=== PATIENT | male | born 1955 | race Hispanic/Latino ===

== ENCOUNTER 2017-12-17 15:04 | Emergency (ER) | payer MEDICARE | END 2017-12-17 18:21 | disposition home or self-care (01) | LOC: ERS 15:04 | DX: M54.2 Cervicalgia (principal); G89.29 Other chronic pain; E11.9 Type 2 diabetes mellitus without complications; Z79.4 Long term (current) use of insulin; Z79.891 Long term (current) use of opiate analgesic; Z79.899 Other long term (current) drug therapy | CPT/HCPCS: 99283 ==

== ENCOUNTER 2020-02-28 11:08 | Inpatient (IN) | payer MEDICARE, OTHER ==
--- NOTE | 2020-02-28 11:25 | CT ---
CT Brain WO Con: 02/28/2020 12:00 AM CLINICAL HISTORY: 64-year-old male with left-sided weakness, headache and left leg numbness. IMAGING TECHNIQUE: Multiple CT images were obtained of the brain without IV contrast. COMPARISON: CT of the brain dated January 23, 2009 FINDINGS: BRAIN: Evidence of infarct: There is a 1.9 x 1.6 cm right thalamic hemorrhagic infarct with mild surroundin g vasogenic edema. There is a remote lacunar infarct involving the left basal ganglia, specifically the left caudate head and left globus pallidus that has occurred in the interim. Evidence of cranial hemorrhage: None. Evidence of midline shift: Third ventricle and septum pellucidum are midline. Ventricles: Normal. No hydrocephalus. SKULL: Intact. VISUALIZED PARANASAL SINUSES: There is mild mucosal thickening within the ethmoid air cells and left maxillary sinus. MASTOID AIR CELLS: Clear. EXTRACRANIAL SOFT TISSUES: Normal. IMPRESSION: 1. Acute right thalamic hemorrhagic infarct with mild surrounding vasogenic edema. 2. Chronic lacunar infarct involving the left basal ganglia. 3. Mild paranasal sinus disease. 4. Findings called to Dr. Silver at 11:20 AM on February 26, 2020.
[2020-02-28] MEDS ORDERED: Labetalol HCl 100 MG/20 ML VIAL ONE (11:31)
[2020-02-28] MEDS ORDERED: Acetaminophen 500 MG TAB ONE (11:41)
[2020-02-28] MEDS ORDERED: diphenhydrAMINE 50 MG/ML VIAL ONE (11:41)
[2020-02-28] MEDS ORDERED: Metoclopramide HCl 10 MG/2 ML VIAL ONE (11:41)
[2020-02-28 11:56] LABS: #Lymphocytes 0.7 thou/uL (1.20-3.40); #Monocytes 0.5 thou/uL (0.11-0.59); %Basophils 0.3 % (0.0-1.0); %Eosinophils 0.3 % (0.0-10.0); %Lymphocytes 7.1 % (21.0-51.0); %Monocytes 5.7 % (0.0-10.0); %Neutrophils 86.7 % (42.0-75.0); Hemoglobin 15.9 g/dL (14.0-18.0); Mean Corpuscular HGB CONC 35.3 g/dL (32.0-36.0); Mean Corpuscular Volume 90.7 fL (78.0-98.0); Mean Platelet Volume 8.2 fL (7.4-10.4); Platelet Count 242 thou/uL (130-400); RBC Distribution Width 11.9 % (11.5-14.5); Red Blood Cell (RBC) Count 4.98 mill/uL (4.70-6.10); White Blood Cell (WBC) Count 9.2 thou/uL (4.8-10.8)
--- NOTE | 2020-02-28 11:59 | RAD ---
EXAM: Single view of the chest HISTORY: Altered mental status COMPARISON: 12/12/2015 FINDINGS: Single view of the chest shows a normal sized cardiomediastinal silhouette. There is no luis armando dence of consolidation, mass, or pleural effusion. Patient has a right shoulder prosthesis. IMPRESSION: No evidence of acute cardiopulmonary disease
[2020-02-28 12:15] LABS: ALT (SGPT) 23 U/L (8-55); AST (SGOT) 47 U/L (5-34); Alkaline Phosphatase 83 U/L (40-110); Anion Gap 20 mmol/L (10-20); BUN (Urea Nitrogen) 15 mg/dL (8.4-25.7); CK (CPK) 2633 U/L (30-200); Calc. Creatinine Clearance 0 mL/min (70-130); Calcium 9.2 mg/dL (7.8-10.44); Carbon Dioxide 19 mmol/L (23-31); Chloride 100 mmol/L (98-107); Estimated GFR-MDRD 57; Globulin 2.7 g/dL (2.4-3.5); Glucose 333 mg/dL (80-115); Potassium 4.5 mmol/L (3.5-5.1); Protein, Total 6.7 g/dL (5.8-8.1); Sodium 134 mmol/L (136-145)
[2020-02-28 12:24] LABS: INR-International Normal Ratio 1.2; Prothrombin Time 14.7 sec (12.0-14.7)
[2020-02-28 12:25] LABS: PTT 35.6 sec (22.9-36.1)
[2020-02-28] MEDS ORDERED: Labetalol HCl 100 MG/20 ML VIAL SLOW IVP PRN (16:15)
--- NOTE | 2020-02-28 16:15 | PDOC.HHP ---
Hospitalist HPI - History of Present Illness L side weakness due to hemorrhagic stroke History of Present Illness: This is a 64 year old male with a past medical history of Type II Diabetes, hypertension, who presented after a fall. The patient states that last night he was sitting on the toilet and when he got up he fell. He noticed some left arm numbness and leg numbness at around 11:00 pm last night. He states he was unable to get up off the floor. He did hit his head but did not lose consciousness. He reports mild headache, no changes in vision, no chest pain, palpitations, dizziness or lightheadedness prior to the fall. He did not notice any changes in his speech. The patient reports having right sided shoulder pain after his fall. He reports some pain lifting up his right shoulder ED Course: The patient presented to the ER with slightly elevated BP in the 160's. He was noted to have left sided weakness so Ct head was done which showed acute right thalamic hemorrhagic infarct with vasogenic edema. Neurosurgery was contacted who recommended keeping BP < 150. The patient was given 30 mg IV labetalol, tylenol, benadryl and reglan for his headache. The patient's labs showed CK of 2633, AST 47 Hospitalist ROS - Review of Systems Constitutional: reports: weakness (Left side). denies: fever, chills, sweats Eyes: reports: other (Left side ptosis) ENT: denies: ear discharge Respiratory: denies: shortness of breath, sputum Gastrointestinal: denies: nausea, vomiting, diarrhea Musculoskeletal: reports: shoulder pain (Right side) Hospitalist History - Past Medical History Gastrointestinal: reports: GERD Endocrine: reports: Diabetes - Past Surgical History Past Surgical History: reports: Appendectomy, Other (Lymph node removal, thigh) - Family History Family History: reports: no pertinent history - Social History Smoking Status: Never smoker Alcohol: reports: Occassional Drugs: reports: none - Exam General Appearance: awake alert Eye: PERRL, anicteric sclera ENT: normocephalic atraumatic Neck: supple, symmetric, no lymphadenopathy Heart: RRR, no murmur, no gallops, no rubs, normal peripheral pulses Respiratory: CTAB, rhonchi Gastrointestinal: soft, normal bowel sounds, tender to palpation Extremities: no cyanosis, no clubbing Skin: normal turgor Neurological: cranial nerve grossly intact Neurological - other findings: 1+ reflexes biceps/brachioradialis, 1+ patella. Neg Babinski bilaterally Musculoskeletal: normal strength, generalized weakness (Cannot lift left arm but can move left leg and right leg. Diminished strength left arm and leg. Pain with lifting right arm above 180 degrees) Psychiatric: A&O x 3 Hospitalist Results - Labs Result Diagrams: 02/28/20 11:11 02/28/20 11:11 Lab results: WBC 9.2 thou/uL (4.8-10.8) 02/28/20 11:11 Hgb 15.9 g/dL (14.0-18.0) 02/28/20 11:11 Hct 45.1 % (42.0-52.0) 02/28/20 11:11 MCV 90.7 fL (78.0-98.0) 02/28/20 11:11 Plt Count 242 thou/uL (130-400) 02/28/20 11:11 Neutrophils % 86.7 % (42.0-75.0) H 02/28/20 11:11 Sodium 134 mmol/L (136-145) L 02/28/20 11:11 Potassium 4.5 mmol/L (3.5-5.1) 02/28/20 11:11 Chloride 100 mmol/L (98-107) 02/28/20 11:11 Carbon Dioxide 19 mmol/L (23-31) L 02/28/20 11:11 BUN 15 mg/dL (8.4-25.7) 02/28/20 11:11 Creatinine 1.26 mg/dL (0.7-1.3) 02/28/20 11:11 Glucose 333 mg/dL (80-115) H 02/28/20 11:11 Calcium 9.2 mg/dL (7.8-10.44) 02/28/20 11:11 Total Bilirubin 1.0 mg/dL (0.2-1.2) 02/28/20 11:11 AST 47 U/L (5-34) H 02/28/20 11:11 ALT 23 U/L (8-55) 02/28/20 11:11 Alkaline Phosphatase 83 U/L (40-110) 02/28/20 11:11 Creatine Kinase 2633 U/L (30-200) H 02/28/20 11:11 Troponin I Less than 0.010 ng/mL (< 0.028) 02/28/20 11:11 Serum Total Protein 6.7 g/dL (5.8-8.1) 02/28/20 11:11 Albumin 4.0 g/dL (3.4-4.8) 02/28/20 11:11 - EKG Interpretation EKG: normal snius rhythm Hospitalist H&P A/P - Plan Plan: CT brain: acute right thalamic hemorrhagic infarct with mild surrounding vasogenic edema. Mild paranasal sinus disease This is a 64 year old male with past medical history of diabetes, hypertension who presented with left sided weakness and a fall, found to have hemorrhagic infarct Acute hemorrhagic infarct - the patient has left sided weakness. MRI brain has been ordered -neurosurgery has been consulted, keep BP < 160. will hold aspirin for now, continue statin Type II diabetes - continue insulin sliding scale - fingersticks achs Right shoulder pain - right shoulder X ray unremarkable DVT prophylaxis: hold for now, SCDS Code status: full code
[2020-02-28 16:35] VITALS: BMI 26.9
--- NOTE | 2020-02-28 18:36 | RAD ---
RIGHT SHOULDER THREE VIEWS: History: Shoulder pain after a fall. FINDINGS: A total shoulder replacement is in place. On the transcapular view, the articulation between the nahomy ral and glenoid components appears normal. No fractures are seen. IMPRESSION: No acute changes. POS: [facility]
[2020-02-28] MEDS: Acetaminophen 325 MG TAB PO PRN (19:00)
[2020-02-28] MEDS ORDERED: Dextrose 50% Abboject 50 ML SYRINGE SLOW IVP PRN (19:22)
[2020-02-28] MEDS ORDERED: Dextrose 5% in Water 1,000 ML IV PRN (19:22)
--- NOTE | 2020-02-28 19:28 | CT ---
CT BRAIN WITHOUT CONTRAST: History: Intracranial hemorrhage. FINDINGS: No significant interval change is seen since the earlier exam of 11:16 a.m. from the same date. IMPRESSION: Stable exam. POS: ANDRE
[2020-02-28] MEDS: Atorvastatin Calcium 40 MG TAB PO SCH (21:39)
[2020-02-28] MEDS: HumaLOG 300 UNITS/3 ML VIAL SC PRN (22:04)
[2020-02-29] MEDS: hydrALAZINE 20 MG/ML VIAL SLOW IVP PRN (00:16)
[2020-02-29] MEDS: Acetaminophen 325 MG TAB PO PRN ×2 (01:02→07:52)
--- NOTE | 2020-02-29 06:12 | PRG ---
DATE OF SERVICE: 02/28/2020 TIME OF ENCOUNTER: 1650. HISTORY: Mr. Campbell is a 64-year-old male who reports that last night he started to feel some chest discomfort and this morning noticed some left-sided arm and lower extremity weakness with mild speech slurring. This brought him to the emergency department where a CT scan was performed revealing a 0.5 to 1.5 cm right-sided deep thalamic hemorrhage, certainly the cause of his sudden onset of symptoms. He was hypertensive upon arrival with systolic pressures in the high 170s to 180s upon arrival. He does have known history of hypertension and takes medications for this. He is also a diabetic. He does not take any blood thinners according to his history or chart. He was admitted to the hospitalist service for observation. Upon my review with him this afternoon at bedside, he has regained some strength in the left upper and lower extremity, although is obviously weaker than the right. I grade his strength of 4-/5 in both the left upper and left lower extremity movements and all gross major joint movements. Right upper, right lower extremity, 5/5. Speech is fluid and uninhibited. He is A and O x4 and understands where he is and the events of last night and this morning fully. Breathing is unlabored. Systolic pressures in the 140s which is excellent. We would recommend repeat CT scan this evening at around 6 o'clock p.m. We will put the order in for this. If this is stable, no need for further imaging until outpatient followup in 6 to 8 weeks. Hold all blood thinning medications. He will likely need physical therapy and occupational therapy and disposition planning with Case Management to ensure that he is safe to go home or perhaps a swing bed until ready to go home pending review from the therapist input. Certainly, this represents nonsurgical hemorrhage and is certainly classic for typical hypertensive intracerebral hemorrhage. I expect him to make an excellent recovery, although he likely will have some remnant, either numbness or weakness chronically going forward. This was discussed with the patient. We will review his imaging this evening. If stable, we will sign off and plan to follow up in about a month or month and a half. Job ID: [id number]
[2020-02-29] MEDS: HumaLOG 300 UNITS/3 ML VIAL SC PRN ×4 (06:24→20:09)
--- NOTE | 2020-02-29 07:14 | ULT ---
BILATERAL CAROTID DUPLEX ULTRASOUND: HISTORY: Stroke workup. Left-sided weakness. TECHNIQUE: Grayscale, color-flow and spectral Doppler ultrasound imaging of the extracranial carotid artery syst ems and vertebral arteries was performed bilaterally. FINDINGS: Noncalcified plaque in bilateral common carotid arteries. The peak systolic velocity in the right ICA measures 79 cm/s. The peak systolic velocity in the righ t CCA measures 106.9 cm/s. The peak systolic velocity in the left ICA measures 78.8 cm/s. The peak systolic velocity in the l eft CCA measures 101.4 cm/s. The right IC/CC ration is0.74. The left IC/CC ratio is 0.7. Vertebral flow: antegrade, bilaterally. . IMPRESSION: No sonographic evidence of hemodynamically significant stenosis in either carotid artery
--- NOTE | 2020-02-29 08:21 | MRI ---
EXAM: MRI of the brain without contrast HISTORY: Left-sided weakness. Thalamic hemorrhage COMPARISON: CT brain 02/28/2020 TECHNIQUE: Multiplanar multisequence MR images were obtained of the brain without IV contrast. FINDINGS: There is a stable thalamic hemorrhage in the right thalamus measuring 2.0 cm in greatest dimension wi th surrounding vasogenic edema. No restricted diffusion. No hydronephrosis. No extra-axial fluid collection. There is atrophy of the left cerebellar hemisphere. The expected flow voids are present. Corpus callosum, pituitary, and craniocervical junction are within normal limits. The calvarium and overlying soft tissues are unremarkable. The paranasal sinuses and mastoid air cells are well aerated. IMPRESSION: Stable right thalamic hemorrhage. This most likely represents a hypertensive hemorrhage.
[2020-02-29] MEDS ORDERED: Prevnar 13-Val Conj/PF 0.5 ML SYRINGE IM ONE (09:00)
[2020-02-29] MEDS ORDERED: Amlodipine 5 MG TAB PO SCH (09:00)
[2020-02-29] MEDS ORDERED: Insulin Glargine 10 UNITS in Pre-Filled Syringe 1 EACH SC SCH (11:30)
--- NOTE | 2020-02-29 12:03 | CON ---
NEUROLOGY CONSULTATION DATE OF CONSULTATION: 02/29/2020 REASON FOR CONSULTATION: Left-sided weakness. HISTORY OF PRESENT ILLNESS: Mr. Navjot Campbell Jr. is a 64 year old male with medical history significant for hypertension and diabetes, presented to the emergency room after a fall. According to the patient, he noticed left upper and lower extremity numbness and paresthesias around 11 p.m. 02/27/2020 and was unable to get off the floor. He also hit his head, but did not lose consciousness. The patient also felt weak on the left side. He denies nausea, vomiting, headache, chest pain, abdominal pain, vertigo, loss of consciousness, loss of vision associated with the episode. He does report pain in the right hip and the right shoulder after the fall. In the emergency room, his blood pressure was in 160s. CT scan was done, which showed acute right thalamic hemorrhage with vasogenic edema. Neurosurgery was consulted and they recommended keeping blood pressure less than 150 and he was given IV labetalol, Tylenol, Benadryl, Reglan, and admitted for further workup. ALLERGIES: Tramadol REVIEW OF SYSTEMS: All 14 systems were reviewed and were negative except for the pertinent positives and negatives mentioned in the HPI. PAST MEDICAL HISTORY: Diabetes, hypertension, and GERD. PAST SURGICAL HISTORY: Appendectomy. FAMILY HISTORY: No family history of stroke. SOCIAL HISTORY: The patient denies smoking, alcohol or illegal drug use. Physical Exam General Appearance: awake alert Eye: PERRL, anicteric sclera ENT: normocephalic atraumatic Neck: supple, symmetric, no lymphadenopathy Heart: RRR, no murmur, no gallops, no rubs, normal peripheral pulses Respiratory: CTAB, rhonchi Gastrointestinal: soft, normal bowel sounds, tender to palpation Extremities: no cyanosis, no clubbing Skin: normal turgor Neurological: : Mental status; the patient is alert and oriented to person, place, and time. Cranial nerves 2 through 12 intact. Sensory, decreased sensation to pinprick and light touch in the left upper and lower extremity. Motor, muscle tone is decreased in the left upper and lower extremity, normal in the right upper and lower extremity. Right upper and lower extremity 5/5, left upper extremity 2/5 and left lower extremity 2/5. Reflexes diminished bilaterally. Cerebellar, unable to perform on the left secondary to weakness. Gait could not be assessed due to the patient's safety reasons. 02/28/20 11:11 Lab results: WBC 9.2 thou/uL (4.8-10.8) 02/28/20 11:11 Hgb 15.9 g/dL (14.0-18.0) 02/28/20 11:11 Hct 45.1 % (42.0-52.0) 02/28/20 11:11 MCV 90.7 fL (78.0-98.0) 02/28/20 11:11 Plt Count 242 thou/uL (130-400) 02/28/20 11:11 Neutrophils % 86.7 % (42.0-75.0) H 02/28/20 11:11 Sodium 134 mmol/L (136-145) L 02/28/20 11:11 Potassium 4.5 mmol/L (3.5-5.1) 02/28/20 11:11 Chloride 100 mmol/L (98-107) 02/28/20 11:11 Carbon Dioxide 19 mmol/L (23-31) L 02/28/20 11:11 BUN 15 mg/dL (8.4-25.7) 02/28/20 11:11 Creatinine 1.26 mg/dL (0.7-1.3) 02/28/20 11:11 Glucose 333 mg/dL (80-115) H 02/28/20 11:11 Calcium 9.2 mg/dL (7.8-10.44) 02/28/20 11:11 Total Bilirubin 1.0 mg/dL (0.2-1.2) 02/28/20 11:11 AST 47 U/L (5-34) H 02/28/20 11:11 ALT 23 U/L (8-55) 02/28/20 11:11 Alkaline Phosphatase 83 U/L (40-110) 02/28/20 11:11 Creatine Kinase 2633 U/L (30-200) H 02/28/20 11:11 Troponin I Less than 0.010 ng/mL (< 0.028) 02/28/20 11:11 Serum Total Protein 6.7 g/dL (5.8-8.1) 02/28/20 11:11 Albumin 4.0 g/dL (3.4-4.8) 02/28/20 11:11 - EKG Interpretation EKG: normal sinus rhythm CT brain: acute right thalamic hemorrhagic infarct with mild surrounding vasogenic edema. Mild paranasal sinus disease PHYSICAL EXAMINATION: GENERAL APPEARANCE: Awake and alert. HEENT: Normocephalic and atraumatic. CHEST: Clear. NECK: No carotid bruit. NEUROLOGICAL DATA REVIEW: I reviewed the results, which shows mild hyponatremia with sodium of 134 and hyperglycemia . Repeat head CT reviewed, which shows acute right thalamic infarct with surrounding vasogenic edema, which is stable. ASSESSMENT AND PLAN: Mr. Navjot Campbell Jr. is admitted because of left-sided weakness. Head CT reviewed, which showed acute right thalamic infarct with surrounding vasogenic edema due to hypertension. MRI of the brain reviewed, which showed right thalamic hemorrhage. Carotid Dopplers reviewed, which did not reveal any hemodynamically significant stenosis. Strict control of the blood pressure less than 160. Resume aspirin and continue statin for secondary stroke prevention. Continue home meds. Telemetry. Strict control of the blood glucose. PT/OT/ speech. Neuro checks every 4 hours. Fall precautions. DVT prophylaxis. We will continue to follow. Thank you for the consult. Plan discussed in detail with the patient and with the stroke floor team during the multidisciplinary rounds. Job ID: [id number] [facility] HOSPITALVesta
[2020-02-29] MEDS ORDERED: Acetaminophen 325 MG TAB PO PRN (12:23)
[2020-02-29] MEDS ORDERED: Acetaminophen 500 MG TAB PO PRN (12:26)
[2020-02-29 12:33] LABS: Hemoglobin A1c 9.2 % (4.0-6.0)
[2020-02-29] MEDS: HYDROcodone/Acetaminophen 5/325 mg Tablet PO PRN ×2 (12:36→23:54)
--- NOTE | 2020-02-29 14:21 | MRI ---
MR the right shoulder without contrast INDICATION: History of right shoulder pain after fall; history of multiple right-sided shoulder surge chely COMPARISON: Right shoulder radiograph dated February 28, 2020 TECHNIQUE: Axial, sagittal and coronal STIR images were obtained along with axial and coronal PD fat sat series of the right shoulder. Sagittal and coronal T1 images were also obtained of the right shoulder. FINDINGS: There is prominent susceptibility artifact from the patient's reverse total shoulder prosth esis. The degree of artifact limits evaluation of the rotator cuff insertions. There is moderate muscular atrophy of the subscapularis without evidence of a retracted tendon possibly related to deco nditioning. The remaining rotator cuff musculature demonstrates normal signal intensity and bulk. No overt fluid signal intensity is evident to suggest strain. There is no overt evidence to suggest p resence of fracture. There is a postprocedural change of an acromioplasty. There is mild AC joint osteoarthrosis. No lymphadenopathy is evident. No definite periarticular fluid collection is evident. IMPRESSION: 1. Heavily limited MR examination shoulder due to a right total shoulder prosthesis. 2. Moderate atrophy of the subscapularis may reflect sequela of prior injury. No definite retracted t endon is evident to suggest complete tear. Subscapularis partial tear cannot be excluded on the current exam. 3. Mild AC joint osteoarthrosis. Transcribed Date/Time: 02/29/2020 3:05 PM
--- NOTE | 2020-02-29 15:05 | RAD ---
EXAM: 2 views of the right hip HISTORY: Right hip pain after fall COMPARISON: None FINDINGS: 2 views of the right hip shows no evidence of acute fracture or dislocation. No degenerativ e changes are seen. No soft tissue swelling is present. IMPRESSION: No evidence of acute osseous abnormality.
--- NOTE | 2020-02-29 15:06 | RAD ---
EXAM: 2 views of the left hip HISTORY: Left hip pain after fall COMPARISON: 11/06/2011 FINDINGS: 2 views of the left hip shows no evidence of acute fracture or dislocation. No degenerative changes are seen. No soft tissue swelling is present. IMPRESSION: No evidence of acute osseous abnormality.
[2020-02-29] MEDS: Atorvastatin Calcium 40 MG TAB PO SCH (20:09)
[2020-03-01] MEDS: hydrALAZINE 20 MG/ML VIAL SLOW IVP PRN (04:44)
[2020-03-01 05:34] LABS: Anion Gap 12 mmol/L (10-20); BUN (Urea Nitrogen) 11 mg/dL (8.4-25.7); Calc. Creatinine Clearance 76 mL/min (70-130); Calcium 9.5 mg/dL (7.8-10.44); Carbon Dioxide 26 mmol/L (23-31); Chloride 104 mmol/L (98-107); Estimated GFR-MDRD 64; Glucose 245 mg/dL (80-115); Magnesium 1.6 mg/dL (1.6-2.6); Potassium 3.7 mmol/L (3.5-5.1); Sodium 138 mmol/L (136-145)
[2020-03-01] MEDS: HYDROcodone/Acetaminophen 5/325 mg Tablet PO PRN ×2 (05:53→16:10)
[2020-03-01] MEDS: HumaLOG 300 UNITS/3 ML VIAL SC PRN ×3 (05:56→16:23)
[2020-03-01] MEDS ORDERED: Insulin Glargine 10 UNITS in Pre-Filled Syringe 1 EACH SC SCH (09:00)
[2020-03-01] MEDS ORDERED: Amlodipine 5 MG TAB PO SCH (09:00)
[2020-03-01] MEDS ORDERED: Lisinopril 10 MG TAB PO SCH (10:45)
--- NOTE | 2020-03-01 14:13 | PDOC.HOSPP ---
- Subjective Encounter Date: 03/01/20 Subjective: NEUROLOGY PROGRESS NOTE Patient has no new complaints. He is alert and oirented x 3 - Objective Vital Signs & Weight: Vital Signs (12 hours) Temp Pulse Pulse Pulse Resp BP BP 03/01/20 12:23 72 03/01/20 11:54 98.3 F 74 16 03/01/20 11:08 176/89 H 03/01/20 09:08 71 03/01/20 08:30 77 76 177/93 H 03/01/20 07:49 98.4 F 84 16 03/01/20 06:00 03/01/20 04:44 178/97 H 03/01/20 04:00 98.2 F 72 14 BP BP Pulse Ox 03/01/20 12:23 159/86 H 03/01/20 11:54 172/90 H 98 03/01/20 11:08 03/01/20 09:08 03/01/20 08:30 177/93 H 03/01/20 07:49 162/87 H 95 03/01/20 06:00 138/91 H 03/01/20 04:44 03/01/20 04:00 178/97 H 98 Weight Weight 182 lb 4 oz I&O: 02/29/20 03/01/20 03/02/20 06:59 06:59 06:59 Intake Total 300 1350 540 Output Total 950 900 Balance -650 450 540 Result Diagrams: 02/28/20 11:11 03/01/20 04:45 Additional Labs: Accuchecks 03/01/20 03/01/20 02/29/20 10:50 06:00 20:13 POC Glucose 280 H 235 H 280 H 02/29/20 16:58 POC Glucose 298 H Radiology Reviewed by me: Yes EKG Reviewed by me: Yes Hospitalist ROS - Review of Systems Constitutional: denies: fever, chills, sweats, weakness, malaise, other Eyes: denies: pain, vision change, conjunctivae inflammation, eyelid inflammation, redness, other ENT: denies: ear pain, ear discharge, nose pain, nose discharge, nose congestion , mouth pain, mouth swelling, throat pain, throat swelling, other Respiratory: denies: cough, dry, shortness of breath, hemoptysis, SOB with excertion, pleuritic pain, sputum, wheezing, other Cardiovascular: denies: chest pain, palpitations, orthopnea, paroxysmal noc. dyspnea, edema, light headedness, other Gastrointestinal: denies: nausea, vomiting, abdominal pain, diarrhea, constipation, melena, hematochezia, other Musculoskeletal: reports: neck pain, shoulder pain. denies: arm pain, back pain , hand pain, leg pain, foot pain, other Neurological: reports: weakness, numbness. denies: incoordination, change in speech, confusion, seizures, other All other systems reviewed; all pertinent +/- noted in HPI/Subj - Medication Medications: Active Medications Generic Name Dose Route Start Last Admin Trade Name Freq PRN Reason Stop Dose Admin Hydrocodone Bitart/Acetaminophen 1 tab 02/29/20 12:23 03/01/20 05:53 Hendricks 5/325 PO 1 tab Q4H PRN Administration Moderate Pain (4-6) Amlodipine Besylate 10 mg 03/01/20 09:00 03/01/20 09:08 Norvasc PO 10 mg DAILY ISH Administration Atorvastatin Calcium 40 mg 02/28/20 21:00 02/29/20 20:09 Lipitor PO 40 mg HS ISH Administration Hydralazine HCl 10 mg 02/28/20 16:15 03/01/20 04:44 Apresoline SLOW IVP 10 mg Q4H PRN Administration SBP>160 Insulin Human Lispro 0 units 02/28/20 19:22 03/01/20 11:09 Humalog SC 4 unit .MILD SLIDING SCALE PRN Administration Mild Correctional Scale Insulin Human Lispro 0 units 02/28/20 21:49 02/29/20 20:09 Humalog SC 3 unit .BEDTIME SLIDING SC PRN Administration Bedtime Correctional Scale Labetalol HCl 20 mg 02/28/20 16:15 02/29/20 01:01 Normodyne SLOW IVP 20 mg Q1H PRN Administration SBP>160 Metoprolol Succinate 25 mg 03/01/20 09:00 03/01/20 09:09 Toprol Xl PO 25 mg DAILY ISH Administration Sodium Chloride 10 ml 02/28/20 16:15 03/01/20 09:09 Flush - Normal Saline IVF 10 ml PRN PRN Administration Saline Flush - Exam General Appearance: awake alert Eye: PERRL ENT: normocephalic atraumatic Neck: supple Heart: RRR Respiratory: CTAB Gastrointestinal: soft Extremities: no cyanosis Skin: normal turgor Neurological: no new deficit Neurological - other findings: left hemiparesis Psychiatric: normal affect, normal behavior, A&O x 3, oriented to person, oriented to place, oriented to time Hosp A/P (1) Hemorrhagic cerebrovascular accident (CVA) Code(s): I61.9 - NONTRAUMATIC INTRACEREBRAL HEMORRHAGE, UNSPECIFIED Status: Acute Plan: MRI Brain reviewed which was consistent with acute right thalamic infarction. Carotid dopplers did not reveal significant stenosis. Neurocheck every 4 hours. Continue home medications. Hold aspirin . Echo completed. Results pending. Strict control of BP and BG. Continue medical management per primary team. (2) Diabetes mellitus Code(s): E11.9 - TYPE 2 DIABETES MELLITUS WITHOUT COMPLICATIONS Status: Acute Qualifiers: Diabetes mellitus type: type 2 Diabetes mellitus supervisor intermediates insulin use: with supervisor intermediates use Diabetes mellitus complication status: with kidney complications Diabetes mellitus complication detail: with chronic kidney disease Chronic kidney disease stage: stage 3 (moderate) Qualified Code(s): E11.22 - Type 2 diabetes mellitus with diabetic chronic kidney disease; N18.3 - Chronic kidney disease, stage 3 (moderate); Z79.4 - MCC (current) use of insulin Plan: HbA1C 9.2 Strict control of BG. Continue insulin. Continue medical managegement per primary team. (3) HTN (hypertension) Code(s): I10 - ESSENTIAL (PRIMARY) HYPERTENSION Status: Acute Qualifiers: Hypertension type: essential hypertension Qualified Code(s): I10 - Essential (primary) hypertension Plan: Continue home medications and medical management per primary team. (4) YOLANDA (acute kidney injury) Code(s): N17.9 - ACUTE KIDNEY FAILURE, UNSPECIFIED Status: Resolved Plan: Continue medical management per primary team. - Plan PT/OT, speech therapy
--- NOTE | 2020-03-01 15:06 | PDOC.HOSPP ---
- Subjective Encounter Date: 02/29/20 Encounter Time: 10:00 Subjective: no overnight events. T - Objective Vital Signs & Weight: Vital Signs (12 hours) Temp Pulse Pulse Pulse Resp BP BP 03/01/20 12:23 72 03/01/20 11:54 98.3 F 74 16 03/01/20 11:08 176/89 H 03/01/20 09:08 71 03/01/20 08:30 77 76 177/93 H 03/01/20 07:49 98.4 F 84 16 03/01/20 06:00 03/01/20 04:44 178/97 H 03/01/20 04:00 98.2 F 72 14 BP BP Pulse Ox 03/01/20 12:23 159/86 H 03/01/20 11:54 172/90 H 98 03/01/20 11:08 03/01/20 09:08 03/01/20 08:30 177/93 H 03/01/20 07:49 162/87 H 95 03/01/20 06:00 138/91 H 03/01/20 04:44 03/01/20 04:00 178/97 H 98 Weight Weight 182 lb 4 oz I&O: 02/29/20 03/01/20 03/02/20 06:59 06:59 06:59 Intake Total 300 1350 540 Output Total 950 900 Balance -650 450 540 Result Diagrams: 02/28/20 11:11 03/01/20 04:45 Additional Labs: Accuchecks 03/01/20 03/01/20 02/29/20 10:50 06:00 20:13 POC Glucose 280 H 235 H 280 H 02/29/20 16:58 POC Glucose 298 H Hospitalist ROS - Review of Systems Constitutional: denies: fever, chills, sweats, weakness, malaise, other Respiratory: denies: cough, dry, shortness of breath, hemoptysis, SOB with excertion, pleuritic pain, sputum, wheezing, other Cardiovascular: denies: chest pain, palpitations, orthopnea, paroxysmal noc. dyspnea, edema, light headedness, other Gastrointestinal: denies: nausea, vomiting, abdominal pain, diarrhea, constipation, melena, hematochezia, other Musculoskeletal: reports: shoulder pain Neurological: denies: weakness, numbness, change in speech, confusion - Medication Medications: Active Medications Generic Name Dose Route Start Last Admin Trade Name Freq PRN Reason Stop Dose Admin Hydrocodone Bitart/Acetaminophen 1 tab 02/29/20 12:23 03/01/20 05:53 [place] 5/325 PO 1 tab Q4H PRN Administration Moderate Pain (4-6) Amlodipine Besylate 10 mg 03/01/20 09:00 03/01/20 09:08 Norvasc PO 10 mg DAILY ISH Administration Atorvastatin Calcium 40 mg 02/28/20 21:00 02/29/20 20:09 Lipitor PO 40 mg HS ISH Administration Hydralazine HCl 10 mg 02/28/20 16:15 03/01/20 04:44 Apresoline SLOW IVP 10 mg Q4H PRN Administration SBP>160 Insulin Human Lispro 0 units 02/28/20 19:22 03/01/20 11:09 Humalog SC 4 unit .MILD SLIDING SCALE PRN Administration Mild Correctional Scale Insulin Human Lispro 0 units 02/28/20 21:49 02/29/20 20:09 Humalog SC 3 unit .BEDTIME SLIDING SC PRN Administration Bedtime Correctional Scale Labetalol HCl 20 mg 02/28/20 16:15 02/29/20 01:01 Normodyne SLOW IVP 20 mg Q1H PRN Administration SBP>160 Metoprolol Succinate 25 mg 03/01/20 09:00 03/01/20 09:09 Toprol Xl PO 25 mg DAILY ISH Administration Sodium Chloride 10 ml 02/28/20 16:15 03/01/20 09:09 Flush - Normal Saline IVF 10 ml PRN PRN Administration Saline Flush - Exam General Appearance: NAD, awake alert Neck: no JVD Heart: RRR, no murmur, no gallops, no rubs Respiratory: CTAB, no wheezes, no rales, no ronchi Gastrointestinal: soft, non-tender, non-distended, normal bowel sounds Extremities: no edema Musculoskeletal - other findings: 5/5 throughout with exception of right arm limited by shoulder pain Psychiatric: normal affect, normal behavior, A&O x 3 Hosp A/P - Plan Acute hemorrhagic infarct - the patient has left sided weakness. MRI brain has been ordered -neurosurgery has been consulted, keep BP < 160. will hold aspirin for now, continue statin -though stroke likely due to poorly controlled blood pressure, PCP should evaluate starting on aspirin subacutely after stroke based on ASCVD risk Type II diabetes - continue insulin sliding scale - fingersticks achs Right shoulder pain - right shoulder X ray unremarkable -MRI showing no acute process -pain control -patient informed to follow up with orthopedic surgeon who operated on his shoulder Disposition: [facility] 1 midnight pending subacute rehab evaluation
[2020-03-01 15:49] VITALS: BP 149/80; TEMP 98.2
[2020-03-01] MEDS ORDERED: metFORMIN 500 MG TAB PO SCH (17:00)
--- NOTE | 2020-03-02 02:30 | DIS ---
DATE OF ADMISSION: 02/28/2020 DATE OF DISCHARGE: 03/01/2020 HOSPITAL COURSE: Mr. Campbell is a 64-year-old male with medical history of type 2 diabetes, hypertension, who presented after a fall. The patient noticed left-sided weakness, lost his balance and fell. He was diagnosed with acute right thalamic hemorrhagic infarct with mild surrounding vasogenic edema. Neurology and Neurosurgery were consulted. Blood pressure medications were adjusted to better control the patient's hypertension, which was the likely etiology for his hemorrhagic stroke. The patient's neurologic function improved during inpatient stay and he was evaluated by rehab. He was discharged to inpatient Rehab with followup appointments with primary care physician. On the day of discharge, the patient had no complaints with the exception of [id number] right shoulder pain that improved during his inpatient stay. PHYSICAL EXAMINATION: VITAL SIGNS: Blood pressure 169/86, temperature 98.3, pulse 74, respiratory rate 16, oxygen saturation 98% on room air. GENERAL: Lying comfortably in bed, alert. EYES: PERRL. Anicteric sclerae. ENT: Normocephalic, atraumatic. NECK: Supple. Symmetric. No lymphadenopathy. HEART: Regular rate and rhythm. No murmurs, gallops, or rubs. Normal peripheral pulses. RESPIRATORY: Clear to auscultation bilaterally. GI: Soft, nontender, nondistended. Normal bowel sounds. EXTREMITIES: Strength 5/5 with the exception of right upper extremity. His strength was limited by right shoulder pain. MEDICATION LIST: 1. Tylenol. 2. Amlodipine 10 mg p.o. daily. 3. Atorvastatin 40 mg p.o. at bedtime. 4. Lisinopril 10 mg p.o. daily. 5. Metformin 1000 mg p.o. b.i.d. CONTINUED MEDICATIONS: 1. Metoprolol succinate 25 mg p.o. daily. 2. Glipizide 5 mg p.o. daily. 3. Humalog 20 units t.i.d. with meals. FOLLOWUP: The patient has followup appointment with his PCP and the PCP was instructed to assess indication for Job ID: [id number]
[2020-03-02] MEDS ORDERED: Lisinopril 10 MG TAB PO SCH (09:00)
--- NOTE | 2020-03-05 11:22 | EKG ---
Test Reason : Blood Pressure : / mmHG Vent. Rate : 100 BPM Atrial Rate : 100 BPM P-R Int : 130 ms QRS Dur : 082 ms QT Int : 336 ms P-R-T Axes : 027 015 025 degrees QTc Int : 433 ms Normal sinus rhythm Normal ECG Confirmed by NAOMI BIRMINGHAM DO ([id number]), features editor MAURA AVENDANO ([id number]) on 03/05/2020 11:21:30 AM Referred By: Confirmed By:NAOMI BIRMINGHAM DO
== END 2020-03-01 18:16 | DRG 64 ==
LOC: ERS 11:08 → 2SE 13:30
PROVIDERS: ADMIT Internal Medicine; ATTEND Internal Medicine
DX: I61.8 Other nontraumatic intracerebral hemorrhage (principal); G93.6 Cerebral edema; M62.82 Rhabdomyolysis; G81.94 Hemiplegia, unspecified affecting left nondominant side; N17.9 Acute kidney failure, unspecified; R40.2412 Glasgow coma scale score 13-15, at arrival to emergency department; R29.706 NIHSS score 6; M25.511 Pain in right shoulder; N18.3 Chronic kidney disease, stage 3 (moderate); E11.22 Type 2 diabetes mellitus with diabetic chronic kidney disease; I12.9 Hypertensive chronic kidney disease with stage 1 through stage 4 chronic kidney disease, or unspecified chronic kidney disease; M54.5 Low back pain; G89.29 Other chronic pain; Z96.611 Presence of right artificial shoulder joint; Z90.49 Acquired absence of other specified parts of digestive tract; Z79.4 Long term (current) use of insulin; Z79.899 Other long term (current) drug therapy
CPT/HCPCS: 36415; 36416; 70450; 70551; 71045; 80048; 80053; 80061; 82550; 83036; 83735; 84484; 85025; 85610; 85730; 90471; 90670; 93005; 93306; 93880; 96361; 96365; 96374; 96375; 96376; G0009; J0360; J1200; J1815; J2765